=== PATIENT | male | born 1960 | race Caucasian/White ===

== ENCOUNTER 2018-03-11 03:53 | Emergency (ER) | payer OTHER ==
[2018-03-11 05:01] LABS: Hematocrit 38.7 % (35.5-45.6); Hemoglobin 13.7 gm/dl (11.8-15.2); Mean Corpuscular HGB Conc 35 % (32-34); Mean Corpuscular Hemoglobin 32 pg (28-32); Mean Corpuscular Volume 92 fl (84-94); Platelet Count 123 K/mm3 (140-440); Red Blood Count 4.23 M/mm3 (3.65-5.03); Red Cell Distribution Width 13.3 % (13.2-15.2)
[2018-03-11] MEDS ORDERED: KEPPRA 1,000 MG/NS 0.75% 100ML 1,000 MG/100 ML BAG IV ONE (05:11)
[2018-03-11 05:17] LABS: BUN/Creatinine Ratio 24; Blood Urea Nitrogen 12 mg/dL (9-20); Calcium 9.2 mg/dL (8.4-10.2); Hemolysis Index 2
--- NOTE | 2018-03-11 07:28 | Emergency Department Report ---
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 He has not had any definite seizure, but he works manual labor, and is concerned about being at work. Not had any falls or injuries, no recent systemic illness, no fever, does not complain of any headache, no chest congestion, no neck pain, no sore throat, and no abdominal pain or nausea and vomiting. He is been eating well. -: Gradual (yesterday) Location: left, lower extremity Radiation: non-radiation Severity scale (0 -10): 0 Quality: other (weakness, numbness) Improves with: none Worsens with: none Associated Symptoms: denies other symptoms Treatments Prior to Arrival: none - Related Data Previous Rx's Medication Instructions Recorded Last Taken Type Acetaminophen/Codeine [Tylenol 1 tab PO Q6H PRN #20 tab 03/11/18 Unknown Rx /Codeine # 3 tab] Meloxicam 7.5 mg PO DAILY #30 tablet 03/11/18 Unknown Rx levETIRAcetam [Keppra TAB] 1,000 mg PO BID #60 tab 03/11/18 Unknown Rx Allergies Allergy/AdvReac Type Severity Reaction Status Date / Time No Known Allergies Allergy Verified 03/11/18 04:10 ED Review of Systems ROS: Stated complaint: SEIZURE Other details as noted in HPI ED Past Medical Hx - Past Medical History Previous Medical History?: Yes Hx CVA: Yes (old left weakness, 2011) Hx Seizures: Yes (secondary to seizure disorder 2011) - Surgical History Past Surgical History?: Yes Additional Surgical History: abd. left ankle - Social History Smoking Status: Current Every Day Smoker Substance Use Type: Alcohol - Medications Home Medications: Home Medications Medication Instructions Recorded Confirmed Last Taken Type Acetaminophen/Codeine [Tylenol 1 tab PO Q6H PRN #20 tab 03/11/18 Unknown Rx /Codeine # 3 tab] Meloxicam 7.5 mg PO DAILY #30 tablet 03/11/18 Unknown Rx levETIRAcetam [Keppra TAB] 1,000 mg PO BID #60 tab 03/11/18 Unknown Rx ED Physical Exam - General Limitations: No Limitations General appearance: alert, in no apparent distress - Head Head exam: Present: atraumatic, normocephalic - Eye Eye exam: Present: normal appearance, PERRL - ENT ENT exam: Present: mucous membranes moist - Neck Neck exam: Present: normal inspection - Respiratory Respiratory exam: Present: normal lung sounds bilaterally. Absent: respiratory distress - Cardiovascular Cardiovascular Exam: Present: regular rate, normal rhythm. Absent: systolic murmur, diastolic murmur, rubs, gallop - GI/Abdominal GI/Abdominal exam: Present: soft, normal bowel sounds - Rectal Rectal exam: Present: deferred - Extremities Exam Extremities exam: Present: normal inspection, other (motor activity equal in both lower extremities.). Absent: tenderness, pedal edema, joint swelling - Back Exam Back exam: Present: normal inspection. Absent: tenderness - Neurological Exam Neurological exam: Present: alert, oriented X3, CN II-XII intact. Absent: motor sensory deficit - Psychiatric Psychiatric exam: Present: normal affect, normal mood - Skin Skin exam: Present: warm, dry, intact, normal color. Absent: rash ED Course Vital Signs 03/11/18 03/11/18 03/11/18 04:05 05:09 05:16 Temperature 98.0 F Pulse Rate 88 84 65 Respiratory 18 18 17 Rate Blood Pressure 145/86 Blood Pressure [Left] O2 Sat by Pulse 97 96 98 Oximetry 03/11/18 03/11/18 03/11/18 05:20 05:30 05:46 Temperature 97.7 F Pulse Rate 81 78 61 Respiratory 13 19 15 Rate Blood Pressure 137/92 137/92 Blood Pressure 135/85 [Left] O2 Sat by Pulse 98 100 98 Oximetry 03/11/18 03/11/18 03/11/18 06:00 06:16 06:30 Temperature Pulse Rate 81 69 85 Respiratory 13 19 14 Rate Blood Pressure 127/101 127/101 127/101 Blood Pressure [Left] O2 Sat by Pulse 97 98 99 Oximetry 03/11/18 03/11/18 03/11/18 06:46 07:00 09:14 Temperature Pulse Rate 72 Respiratory 17 16 Rate Blood Pressure 144/71 Blood Pressure 144/71 [Left] O2 Sat by Pulse 100 Oximetry - Reevaluation(s) Reevaluation #1: 03/11/18 10:49 Patient remained stable, now has multiple complaints about left shoulder discomfort, gives history of having fallen as a result of having a brief seizure over , with dislocation of his left shoulder, which was relocated at [facility] in [facility]. He was given a sling at that time, recommended orthopedic and primary care referral, but does not have sufficient funds to see either on a regular basis. He does not currently have a physician, and has no means of refill of his Keppra. ED Medical Decision Making - Lab Data Result diagrams: 03/11/18 04:44 03/11/18 04:44 - Radiology Data Radiology results: report reviewed (CT scan brain shows old right frontal infarct, no evidence of acute infarct, no other intracranial pathology, x-rays of left shoulder shows apparent subacute evulsion fracture of the left lateral humeral head, probably one of the attaching tendons, which shows healing in process, no dislocation or acute fracture identified.) - Medical Decision Making Patient is clinically stable, as no evidence of acute infarct, no signs of recurrent seizure, and has new complaint of shoulder pain, which apparently has been chronic since he had dislocation several weeks ago, with relocation. He is not aware of having had an evulsion fracture, which was likely suffered at the time of the dislocation, but was recommended to follow with an orthopedist, and has not been able to do so. He is still not an physician to do so, and appears now to want sufficient pain medication to take care of this chronic discomfort. I will provide patient with a short course, we'll also give him meloxicam for ongoing anti-inflammatory, but he will need to find a primary care doctor or a pain specialist to take care of his ongoing pain management needs. I will give patient a refill of his Keppra, 1 g twice daily, with a refill, while he is finding a new primary care physician. - Differential Diagnosis stroke, recurrent seizure, chronic shoulder pain, shoulder fracture, should Critical Care Time: No Critical care attestation.: If time is entered above; I have spent that time in minutes in the direct care of this critically ill patient, excluding procedure time. ED Disposition Clinical Impression: Seizure disorder, Noncompliance with medication regimen Fracture of humerus with delayed healing Qualifiers: Humerus Location: greater tuberosity Fracture alignment: nondisplaced Laterality: left Disposition: - TO HOME OR SELFCARE Is pt being admited?: No Does the pt Need Aspirin: No Condition: Stable Instructions: Recurrent Seizures Adult (ED), Shoulder Sprain (ED) Additional Instructions: find a primary care physician for your ongoing prescription medication refill needs. Prescriptions: Acetaminophen/Codeine [Tylenol /Codeine # 3 tab] 1 tab PO Q6H PRN #20 tab PRN Reason: Pain levETIRAcetam [Keppra TAB] 1,000 mg PO BID #60 tab Meloxicam 7.5 mg PO DAILY #30 tablet Referrals: SOTERO GARCIA MD [Primary Care Provider] - 3-5 Days Time of Disposition: 10:53
--- NOTE | 2018-03-11 08:04 | Cat Scan Report ---
CT HEAD WITHOUT CONTRAST: HISTORY: Disorder, left leg numbness and weakness. TECHNIQUE: Sequential 2.5mm CT images. COMPARISON: none. FINDINGS: Cerebral Parenchyma: A small chronic subcortical infarct is identified in the anteromedial right frontal lobe which is best demonstrated on image 46, series 2. This area measures approximately 1.8 x 1.1 cm in axial plane. The remaining brain parenchyma demonstrates normal attenuation. Normal soler-white interface. Cerebellum: Within normal limits. Brainstem: Within normal limits. Ventricles: Normal. Sella: Normal. Extra-axial spaces: Normal. Basal Cisterns: Normal. Intracranial Hemorrhage: None. Midline Shift: None. Calvarium: Normal. Sinuses: Normal. Mastoid Air Cells: Normal. Visualized Orbits: Normal. IMPRESSION: No acute intracranial process identified. Small chronic infarct in the anteromedial right frontal lobe.
[2018-03-11] MEDS ORDERED: NORCO 10/325 PO ONE ×2 (08:54→10:44)
--- NOTE | 2018-03-11 09:50 | XRay Report ---
LEFT SHOULDER, 3 VIEWS: History: Left shoulder pain. Findings: An avulsion fracture or impacted fracture is suspected in the lateral left humeral head. There appears to be subtle callus formation in this area which could represent a subacute injury. There is also lucency in the lateral left humeral head. I cannot entirely exclude an underlying bone lesion. The left clavicle and scapula are intact. Normal articulation of the left shoulder joint. Minimal degenerative changes. IMPRESSION: Abnormal lateral humeral head as described. Probable healing avulsion fracture. If further evaluation is needed, MRI left shoulder without contrast should provide the most information.
[2018-03-11 11:32] VITALS: BP 138/76
== END 2018-03-11 11:15 | disposition home or self-care (01) ==
LOC: EDBD → ED 03:53
DX: S42.302A Unspecified fracture of shaft of humerus, left arm, initial encounter for closed fracture (principal); G40.909 Epilepsy, unspecified, not intractable, without status epilepticus; F17.200 Nicotine dependence, unspecified, uncomplicated; X58.XXXA Exposure to other specified factors, initial encounter; Y93.89 Activity, other specified; Y92.89 Other specified places as the place of occurrence of the external cause; Y99.8 Other external cause status
CPT/HCPCS: 36415; 70450; 73030; 80048; 83735; 85027; 96365; 99284; J1953